=== PATIENT | female | born 1960 | race Caucasian/White ===

== ENCOUNTER 2018-11-01 04:20 | Emergency (ER) | payer MEDICARE, BC ==
[2018-11-01] MEDS ORDERED: Sodium Chloride 0.9% 10 ML Syringe FLUSH PRN (04:54)
[2018-11-01] MEDS ORDERED: Sodium Chloride 0.9% 1,000 ML IV SCH (05:00)
--- NOTE | 2018-11-01 05:04 | EDM.PDOC ---
ED HPI GENERAL MEDICAL PROBLEM - General Chief Complaint: Gastrointestinal Problem Stated Complaint: blood in stool Time Seen by Provider: 11/01/18 04:42 Source of Information: Reports: Patient History Limitations: Reports: No Limitations - History of Present Illness INITIAL COMMENTS - FREE TEXT/NARRATIVE: The patient presents with rectal bleeding. She says for about a week she was constipated and then she started having bowel movements yesterday morning. There was just streaks of blood and that progressed to blood with clots. She has pain to her lower abdomen. She has no nausea or vomiting. She spinal bifida and is in a wheel chair. She has a urosotmy tube in the right lower abdomen. She has no fever, chills, cough, congestion or runny nose. She has no chest pain or shortness of breath. Onset: Gradual Duration: Day(s): (yesterday) Location: Reports: Abdomen Quality: Reports: Sharp Severity: Mild Improves with: Reports: None Worsens with: Reports: None Associated Symptoms: Reports: No Other Symptoms - Related Data Allergies Allergy/AdvReac Type Severity Reaction Status Date / Time codeine Allergy Abdominal Verified 11/01/18 04:39 Cramps Home Meds: Home Meds Amoxicillin/Clavulanate K [Augmentin 875-125 MG] 1 tab PO BID #14 tablet [Rx] Past Medical History HEENT History: Reports: Impaired Vision Cardiovascular History: Reports: Hypertension Gastrointestinal History: Reports: GERD, Hemorrhoids - Past Surgical History HEENT Surgical History: Reports: None Cardiovascular Surgical History: Reports: None GI Surgical History: Reports: Cholecystectomy Social & Family History - Family History Family Medical History: Noncontributory - Tobacco Use Smoking Status *Q: Never Smoker - Caffeine Use Caffeine Use: Reports: Coffee - Recreational Drug Use Recreational Drug Use: No ED ROS GENERAL - Review of Systems Review Of Systems: See Below Constitutional: Reports: No Symptoms HEENT: Reports: No Symptoms Respiratory: Reports: No Symptoms Cardiovascular: Reports: No Symptoms Endocrine: Reports: No Symptoms GI/Abdominal: Reports: Abdominal Pain, Bloody Stool. Denies: Nausea, Vomiting : Reports: No Symptoms Musculoskeletal: Reports: No Symptoms ED EXAM, GI/ABD - Physical Exam Exam: See Below Exam Limited By: No Limitations General Appearance: Alert, No Apparent Distress Ears: Normal External Exam Nose: Normal Inspection Head: Atraumatic, Normocephalic Neck: Normal Inspection Respiratory/Chest: No Respiratory Distress, Lungs Clear, Normal Breath Sounds Cardiovascular: Regular Rate, Rhythm, No Edema, No Murmur GI/Abdominal Exam: Soft, Non-Tender, No Organomegaly, No Mass, Other (Urostomy in right lower abdomen) Rectal (Female) Exam: Hemorrhoids Course - Vital Signs Last Recorded V/S: Last Vital Signs Temp 96.7 F 11/01/18 04:40 Pulse 91 11/01/18 04:40 Resp 16 11/01/18 04:40 BP 154/91 H 11/01/18 04:40 Pulse Ox 97 11/01/18 04:40 - Orders/Labs/Meds Orders: Active Orders 24 hr Category Date Time Status Peripheral IV Care [RC] . DIRECTED Care 11/01/18 04:55 Active Sodium Chloride 0.9% [Normal Saline] 1,000 ml Med 11/01/18 05:00 Active IV ASDIRECTED Sodium Chloride 0.9% [Saline Flush] Med 11/01/18 04:54 Active 10 ml FLUSH ASDIRECTED PRN Peripheral IV Insertion Adult [OM.PC] Stat Oth 11/01/18 04:54 Ordered Medication Orders Sodium Chloride (Normal Saline) 1,000 mls @ 125 mls/hr IV ASDIRECTED GERARDO Last Admin: 11/01/18 05:05 Dose: 125 mls/hr Sodium Chloride (Saline Flush) 10 ml FLUSH ASDIRECTED PRN PRN Reason: Keep Vein Open Last Admin: 11/01/18 05:05 Dose: 10 ml Labs: Laboratory Tests 11/01/18 11/01/18 Range/Units 05:00 05:00 WBC 9.66 (3.98-10.04) K/mm3 RBC 4.64 (3.98-5.22) M/mm3 Hgb 13.3 (11.2-15.7) gm/L Hct 40.9 (34.1-44.9) % MCV 88.1 (79.4-94.8) fl MCH 28.7 (25.6-32.2) pg MCHC 32.5 (32.2-35.5) g/dl RDW Std Deviation 43.0 (36.4-46.3) fL Plt Count 184 (182-369) K/mm3 MPV 10.8 (9.4-12.3) fl Neut % (Auto) 79.0 H (34.0-71.1) % Lymph % (Auto) 13.6 L (19.3-51.7) % [place] % (Auto) 6.0 (4.7-12.5) % Eos % (Auto) 1.0 (0.7-5.8) Baso % (Auto) 0.3 (0.1-1.2) % Neut # (Auto) 7.63 H (1.56-6.13) K/mm3 Lymph # (Auto) 1.31 (1.18-3.74) K/mm3 [place] # (Auto) 0.58 H (0.24-0.36) K/mm3 Eos # (Auto) 0.10 (0.04-0.36) K/mm3 Baso # (Auto) 0.03 (0.01-0.08) K/mm3 Sodium 137 (136-145) mEq/L Potassium 4.0 (3.5-5.1) mEq/L Chloride 103 (98-107) mEq/L Carbon Dioxide 23 (21-32) mEq/L Anion Gap 15.0 (5-15) BUN 24 H (7-18) mg/dL Creatinine 1.6 H (0.55-1.02) mg/dL Est Cr Clr Drug Dosing 28.20 mL/min Estimated GFR (MDRD) 33 (>60) mL/min BUN/Creatinine Ratio 15.0 (14-18) Glucose 100 (74-106) mg/dL Calcium 8.6 (8.5-10.1) mg/dL Total Bilirubin 0.6 (0.2-1.0) mg/dL AST 17 (15-37) U/L ALT 16 (14-59) U/L Alkaline Phosphatase 155 H (46-116) U/L Total Protein 7.4 (6.4-8.2) g/dl Albumin 3.1 L (3.4-5.0) g/dl Globulin 4.3 gm/dL Albumin/Globulin Ratio 0.7 L (1-2) Lipase 186 (73-393) U/L Meds: Medications Generic Name Dose Route Start Last Admin Trade Name Freq PRN Reason Stop Dose Admin Sodium Chloride 1,000 mls @ 125 mls/hr 11/01/18 05:00 11/01/18 05:05 Normal Saline IV 125 mls/hr ASDIRECTED GERARDO Administration Sodium Chloride 10 ml 11/01/18 04:54 11/01/18 05:05 Saline Flush FLUSH 10 ml ASDIRECTED PRN Administration Keep Vein Open Discontinued Medications Generic Name Dose Route Start Last Admin Trade Name Freq PRN Reason Stop Dose Admin Diatrizoate Meglum/Diatrizoate Sod 90 ml 11/01/18 06:06 11/01/18 07:06 Gastrografin 37% PO 11/01/18 06:07 90 ml ONETIME ONE Administration Iopamidol 100 ml 11/01/18 06:06 11/01/18 07:06 Isovue-370 (76%) IV 11/01/18 06:07 100 ml ONETIME ONE Administration Ondansetron HCl 4 mg 11/01/18 06:21 11/01/18 06:49 Zofran IVPUSH 11/01/18 06:22 4 mg ONETIME ONE Administration Ondansetron HCl Confirm 11/01/18 06:21 11/01/18 06:49 Zofran Administered 11/01/18 06:22 Not Given Dose 4 mg .ROUTE .[facility] - Re-Assessments/Exams Free Text/Narrative Re-Assessment/Exam: 11/01/18 05:03 I ordered an IV NS at 125mL/hr, labs and a CT of her abdomen and pelvis. 11/01/18 06:38 Her CBC was normal. Her creatinine was elevated at 1.6. Her lipase was normal. I am waiting on the CT of her abdomen and pelvis. 11/01/18 07:[address] shows ileal loop with ostomy. Left ureter is dilated down to the ileal loop suggesting the possibility of either reflux or stenosis at the site of insertion. Right ureter shows no dilatation with contrast excretion into the right ureter and ileal loop on delayed images. Bowel wall thickening within the rectum sigmoid colon and descending colon compatible with nonspecific colitis. The patient feels better. She has colitis and a bleeding hemarrhoid. I will get her on some augmentin. Departure - Departure Time of Disposition: 07:20 Disposition: Home, Self-Care 01 Condition: Good Clinical Impression: Bleeding hemorrhoid, Colitis - Discharge Information *PRESCRIPTION DRUG MONITORING PROGRAM REVIEWED*: Not Applicable *COPY OF PRESCRIPTION DRUG MONITORING REPORT IN PATIENT WHITNEY: Not Applicable Prescriptions: Amoxicillin/Clavulanate K [Augmentin 875-125 MG] 1 tab PO BID #14 tablet Referrals: Aldair Restrepo MD [Primary Care Provider] - Forms: ED Department Discharge Additional Instructions: Take the augmentin 2 times per day for 7 days. Take colace or another stool softener to keep your stools soft. After a bowel movement clean the rectal area good. Please return if you are worse. - My Orders Last 24 Hours: My Active Orders 11/01/18 04:54 Sodium Chloride 0.9% [Saline Flush] 10 ml FLUSH ASDIRECTED PRN Peripheral IV Insertion Adult [OM.PC] Stat 11/01/18 04:55 Peripheral IV Care [RC] . DIRECTED 11/01/18 05:00 Sodium Chloride 0.9% [Normal Saline] 1,000 ml IV ASDIRECTED - Assessment/Plan Last 24 Hours: My Active Orders 11/01/18 04:54 Sodium Chloride 0.9% [Saline Flush] 10 ml FLUSH ASDIRECTED PRN Peripheral IV Insertion Adult [OM.PC] Stat 11/01/18 04:55 Peripheral IV Care [RC] . DIRECTED 11/01/18 05:00 Sodium Chloride 0.9% [Normal Saline] 1,000 ml IV ASDIRECTED
[2018-11-01] MEDS ORDERED: Diatrizoate Meglumine/Diatrizoate Sodium 37% 120 ML Bottle PO ONE (06:06)
[2018-11-01] MEDS ORDERED: Iopamidol 755 Mg/ML 200 ML Bottle IV ONE (06:06)
[2018-11-01] MEDS ORDERED: Ondansetron 4 MG/2 ML SDV IVPUSH ONE (06:21)
[2018-11-01] MEDS ORDERED: Ondansetron 4 MG/2 ML SDV ONE (06:21)
--- NOTE | 2018-11-01 07:10 | CT ---
CT abdomen and pelvis Technique: Multiple axial sections were obtained from slightly below the dome of the diaphragm inferiorly through the pubic symphysis. Intravenous and oral contrast was given. Findings: Bowel wall thickening is seen within the rectum as well as within the sigmoid colon and descending colon. Ileal loop with ostomy is noted. Left ureter is dilated to the ileal loop. Left kidney is hydronephrotic with cortical thinning. There are cortical cysts seen within both kidneys. Small portion of the visualized lung bases are clear. Surgical clips are seen from prior cholecystectomy. Small to moderate sized hiatal hernia is noted. Liver shows no focal parenchymal abnormality. Spleen appears within normal limits. Pancreas is within normal limits. Aorta shows atherosclerotic change which continues into the iliac vessels without aneurysm. No retroperitoneal adenopathy or mesenteric abnormalities are seen. No pelvic mass or adenopathy is seen. No free fluid is seen. Delayed images through the abdomen show contrast excretion into the right ureter and into the ileostomy. No contrast is seen within the left ureter with small amount of contrast pooling within a dilated collecting system. Bone window settings were reviewed which show slight degenerative change scattered within the spine. Impression: 1. Ileal loop with ostomy. Left ureter is dilated down to the ileal loop suggesting the possibility of either reflux or stenosis at the site of insertion. Right ureter shows no dilatation with contrast excretion into the right ureter and ileal loop on delayed images. 2. Bowel wall thickening within the rectum, sigmoid colon and descending colon compatible with nonspecific colitis. 3. Other incidental findings as noted above. Diagnostic code #3
== END 2018-11-01 07:36 | disposition home or self-care (01) ==
LOC: JD.ED 04:20
DX: K52.9 Noninfective gastroenteritis and colitis, unspecified (principal); K64.9 Unspecified hemorrhoids; I10 Essential (primary) hypertension; Z88.5 Allergy status to narcotic agent
CPT/HCPCS: 36415; 74177; 80053; 83690; 85025; 96361; 96374; 99284; J2405; J7040; Q9963; Q9967

== ENCOUNTER 2021-04-16 19:24 | Emergency (ER) | payer MEDICARE, OTHER ==
[2021-04-16] MEDS ORDERED: Ondansetron 4 MG/2 ML SDV IVPUSH ONE (20:14)
[2021-04-16] MEDS ORDERED: HYDROmorphone 1 MG/ML Syringe IVPUSH ONE (20:14)
[2021-04-16] MEDS ORDERED: Sodium Chloride 0.9% 1,000 ML IV SCH (20:15)
[2021-04-16] MEDS ORDERED: Loperamide 2 MG Cap PO STA (20:19)
--- NOTE | 2021-04-16 20:20 | EDM.PDOC ---
ED HPI GENERAL MEDICAL PROBLEM - General Chief Complaint: Possible Sepsis Stated Complaint: [facility] Time Seen by Provider: 04/16/21 19:34 Source of Information: Reports: Patient History Limitations: Reports: Uncooperative - History of Present Illness INITIAL COMMENTS - FREE TEXT/NARRATIVE: Ms. Summers is a 60 year old woman who is now brought to the ED by EMS with a r eport of feeling sick for the past 3 weeks, after her sister, with whom she lives, was diagnosed with COVID-19. The patient was reluctant to answer my questions about her presenting symptoms or past medical history, at one point telling me to go look in the medical record, which, unfortunately, I cannot do, as the patient has only been to this ED once before, and the medical record does not even mention that she has spina bifida. I suspect that the patient has spent a lifetime in healthcare facilities and is tired of answering the same questions over and over. I believe that I was able to convey to her, however, that we are simply trying to help her. The patient has a history of spina bifida, and is ordinarily wheelchair-bound, although I believe she can use a pair of arm crutches, as well. She endorses that she has had 3 weeks of a nonproductive cough with dyspnea, and both constipation and diarrhea. She reports having nausea and vomiting this morning. She expressly denies having a recent fever, chills, sore throat, ear pain, nasal or sinus congestion, chest pain or discomfort, palpitations, abdominal pain, urinary symptoms, body aches, recent weight gain or weight loss, recent bloody bowel movements or black bowel movements, recent joint aches, headaches, or rashes. She states that she has not taken any [id number] or home remedies over the past 3 weeks, and she has not sought any medical evaluation until now. The patient states that she has pain in her sacral area related to her diarrhea. She is concerned that she has an ulcer or an infection in that area. She states that she has been cleaning the area with ordinary soap and water, but has not applied any medications or salves. Here in the ED, the patient was initially found to be tachycardic at 126 bpm, with tachypnea of 30 rpm. She is otherwise hemodynamically stable, afebrile, saturating 90% on room air. She appears to be uncomfortable, complaining of sacral area pain, frequently shifting her position, but declined an offer to have me put the head of the gurney down. She does not appear to be in acute distress. The patient's PCP is Dr. Aldair Restrepo. Her Orthopedic Surgeon is Dr. Kurtis Martinez. She has not received a COVID vaccination. - Related Data Allergies Allergy/AdvReac Type Severity Reaction Status Date / Time codeine Allergy Abdominal Verified 04/16/21 19:35 Cramps Past Medical History HEENT History: Reports: Impaired Vision (wears glasses) Cardiovascular History: Reports: High Cholesterol (untreated), Hypertension Gastrointestinal History: Reports: GERD, Hemorrhoids Genitourinary History: Reports: Neurogenic Bladder (s/p urostomy) Neurological History: Reports: Other (See Below) (Spina bifida) - Past Surgical History HEENT Surgical History: Reports: Oral Surgery (dental extractions) GI Surgical History: Reports: Cholecystectomy Female Surgical History: Reports: Other (See Below) (Urostomy) Social & Family History - Tobacco Use Tobacco Use Status *Q: Never Tobacco User - Caffeine Use Caffeine Use: Reports: Coffee - Alcohol Use Alcohol Use History: No - Recreational Drug Use Recreational Drug Use: No - Living Situation & Occupation Living situation: Reports: Single, with Family (Sister) Occupation: Disabled ED ROS GENERAL - Review of Systems Review Of Systems: Comprehensive ROS is negative, except as noted in HPI. ED EXAM, GENERAL - Physical Exam Exam: See Below Exam Limited By: No Limitations General Appearance: Alert, WD/WN, Mild Distress (appears uncomfortable, complains of sacral area pain) Eye Exam: Bilateral Eye: EOMI, Normal Inspection Ears: Normal External Exam, Hearing Loss Nose: Normal Inspection Throat/Mouth: Normal Inspection, Normal Lips, Normal Voice, No Airway Compromise Head: Atraumatic, Normocephalic Neck: Normal Inspection, Full Range of Motion Respiratory/Chest: No Respiratory Distress, Lungs Clear, Normal Breath Sounds, No Accessory Muscle Use Cardiovascular: Normal Peripheral Pulses, Regular Rate, Rhythm (at time of exam), No Edema, No Gallop, No JVD, No Murmur, No Rub Peripheral Pulses: 3+: Radial (L), Radial (R) GI/Abdominal: Normal Bowel Sounds, Soft, No Organomegaly, No Distention, No Abnormal Bruit, No Mass, Tender (Generalized tenderness. Urostomy RLQ C/D/I), Other (Well-healed surgical wounds) Rectal (Female) Exam: Other (Redundant folds of soft tissue likely related to spina bifida. Skin is erythematous and somewhat excoriated, but no obvious decubitus ulcer of infection.) Back Exam: Normal Inspection, Full Range of Motion, NT Extremities: No Pedal Edema, Normal Capillary Refill Neurological: Alert, Oriented, Normal Cognition, Other (Impaired use BLEs) Psychiatric: Depressed Mood Skin Exam: Warm, Dry, Intact, Normal Color, No Rash Course - Vital Signs Last Recorded V/S: Last Vital Signs Temp 36.9 C 04/17/21 03:36 Pulse 88 04/17/21 04:22 Resp 16 04/17/21 04:22 BP 76/44 L 04/17/21 04:22 Pulse Ox 97 04/17/21 04:22 - Orders/Labs/Meds Orders: Active Orders 24 hr Category Date Time Status Abdomen Pelvis w Cont [CT] Stat Exams 04/16/21 20:11 Taken Chest 1V Frontal [CR] Stat Exams 04/16/21 20:10 Taken BLOOD CULTURE [MREF] Stat Lab 04/16/21 20:45 Received BLOOD CULTURE [MREF] Stat Lab 04/16/21 21:20 Received CULTURE URINE [MREF] Stat Lab 04/16/21 23:00 Received Sodium Chloride 0.9% [Normal Saline] 1,000 ml Med 04/16/21 20:15 Active IV ASDIRECTED Sodium Chloride 0.9% [Normal Saline] 1,000 ml Med 04/17/21 04:50 Active IV ONETIME Blood Culture x2 Reflex Set [OM.PC] Stat Oth 04/16/21 20:13 Ordered Medication Orders Sodium Chloride (Normal Saline) 1,000 mls @ 150 mls/hr IV ASDIRECTED [facility] Last Admin: 04/16/21 20:56 Dose: 150 mls/hr Documented by: AYAD Sodium Chloride (Normal Saline) 1,000 mls @ 999 mls/hr IV ONETIME ONE Stop: 04/17/21 05:50 Last Admin: 04/17/21 05:03 Dose: 999 mls/hr Documented by: SOPHIE Labs: Laboratory Tests 04/16/21 04/16/21 04/16/21 Range/Units 19:40 19:40 19:40 WBC 22.38 H (3.98-10.04) K/mm3 RBC 4.63 (3.98-5.22) M/mm3 Hgb 12.8 (11.2-15.7) gm/dl Hct 39.0 (34.1-44.9) % MCV 84.2 D (79.4-94.8) fl MCH 27.6 (25.6-32.2) pg MCHC 32.8 (32.2-35.5) g/dl RDW Std Deviation 43.3 (36.4-46.3) fL Plt Count 359 D (182-369) K/mm3 MPV 11.1 (9.4-12.3) fl Neutrophils % (Manual) 87 H (40-60) % Band Neutrophils % 0 (0-10) % Lymphocytes % (Manual) 8 L (20-40) % Atypical Lymphs % 0 % Monocytes % (Manual) 4 (2-10) % Eosinophils % (Manual) 0 L (0.7-5.8) % Basophils % (Manual) 1 (0.1-1.2) Platelet Estimate Adequate RBC Morph Comment Normal Puncture Site ABG pH (7.35-7.45) ABG pCO2 (35.0-45.0) mmHg ABG pO2 (80.0-100.0) mmHg ABG HCO3 (22.0-26.0) meq/L ABG O2 Saturation (96.0-97.0) % ABG Base Excess (-2-2.0) Lamine Test O2 Delivery Device FiO2 (21.00-100.00) % Sodium 126 L D (136-145) mEq/L Potassium 5.1 (3.5-5.1) mEq/L Chloride 94 L (98-107) mEq/L Carbon Dioxide 17 L (21-32) mEq/L Anion Gap 20.1 H (5-15) BUN 61 H D (7-18) mg/dL Creatinine 3.8 H D (0.55-1.02) mg/dL Est Cr Clr Drug Dosing TNP Estimated GFR (MDRD) 12 (>60) mL/min BUN/Creatinine Ratio 16.1 (14-18) Glucose 90 (70-99) mg/dL Lactic Acid 1.6 (0.4-2.0) mmol/L Calcium 8.6 (8.5-10.1) mg/dL Magnesium (1.8-2.4) mg/dL Total Bilirubin 0.7 (0.2-1.0) mg/dL AST 24 (15-37) U/L ALT 21 (14-59) U/L Alkaline Phosphatase 136 H (46-116) U/L C-Reactive Protein (<1.0) mg/dL Total Protein 7.5 (6.4-8.2) g/dl Albumin 2.0 L (3.4-5.0) g/dl Globulin 5.5 gm/dL Albumin/Globulin Ratio 0.4 L (1-2) Urine Color (Yellow) Urine Appearance (Clear) Urine pH (5.0-8.0) Ur Specific Red House (1.005-1.030) Urine Protein (Negative) Urine Glucose (UA) (Negative) Urine Ketones (Negative) Urine Occult Blood (Negative) Urine Nitrite (Negative) Urine Bilirubin (Negative) Urine Urobilinogen (0.2-1.0) Ur Leukocyte Esterase (Negative) Urine RBC (0-5) /hpf Urine WBC (0-5) /hpf Urine WBC Clumps (NOT SEEN) /hpf Ur Squamous Epith Cells (0-5) /hpf Urine Bacteria (FEW) /hpf Urine Mucus (FEW) /hpf SARS-CoV-2 RNA (OPAL) (NEGATIVE) 04/16/21 04/16/21 04/16/21 Range/Units 19:40 19:51 23:00 WBC (3.98-10.04) K/mm3 RBC (3.98-5.22) M/mm3 Hgb (11.2-15.7) gm/dl Hct (34.1-44.9) % MCV (79.4-94.8) fl MCH (25.6-32.2) pg MCHC (32.2-35.5) g/dl RDW Std Deviation (36.4-46.3) fL Plt Count (182-369) K/mm3 MPV (9.4-12.3) fl Neutrophils % (Manual) (40-60) % Band Neutrophils % (0-10) % Lymphocytes % (Manual) (20-40) % Atypical Lymphs % % Monocytes % (Manual) (2-10) % Eosinophils % (Manual) (0.7-5.8) % Basophils % (Manual) (0.1-1.2) Platelet Estimate RBC Morph Comment Puncture Site ABG pH (7.35-7.45) ABG pCO2 (35.0-45.0) mmHg ABG pO2 (80.0-100.0) mmHg ABG HCO3 (22.0-26.0) meq/L ABG O2 Saturation (96.0-97.0) % ABG Base Excess (-2-2.0) Lamine Test O2 Delivery Device FiO2 (21.00-100.00) % Sodium (136-145) mEq/L Potassium (3.5-5.1) mEq/L Chloride (98-107) mEq/L Carbon Dioxide (21-32) mEq/L Anion Gap (5-15) BUN (7-18) mg/dL Creatinine (0.55-1.02) mg/dL Est Cr Clr Drug Dosing Estimated GFR (MDRD) (>60) mL/min BUN/Creatinine Ratio (14-18) Glucose (70-99) mg/dL Lactic Acid (0.4-2.0) mmol/L Calcium (8.5-10.1) mg/dL Magnesium 2.0 (1.8-2.4) mg/dL Total Bilirubin (0.2-1.0) mg/dL AST (15-37) U/L ALT (14-59) U/L Alkaline Phosphatase (46-116) U/L C-Reactive Protein 39.9 H* (<1.0) mg/dL Total Protein (6.4-8.2) g/dl Albumin (3.4-5.0) g/dl Globulin gm/dL Albumin/Globulin Ratio (1-2) Urine Color Dark yellow (Yellow) Urine Appearance Turbid H (Clear) Urine pH 6.0 (5.0-8.0) Ur Specific Red [place] 1.020 (1.005-1.030) Urine Protein 2+ H (Negative) Urine Glucose (UA) Negative (Negative) Urine Ketones Trace H (Negative) Urine Occult Blood 2+ H (Negative) Urine Nitrite Negative (Negative) Urine Bilirubin 1+ H (Negative) Urine Urobilinogen 1.0 (0.2-1.0) Ur Leukocyte Esterase 3+ H (Negative) Urine RBC 5-10 H (0-5) /hpf Urine WBC Too numerous to cnt H (0-5) /hpf Urine WBC Clumps Few (NOT SEEN) /hpf Ur Squamous Epith Cells 0-5 (0-5) /hpf Urine Bacteria Many H (FEW) /hpf Urine Mucus Not seen (FEW) /hpf SARS-CoV-2 RNA (OPAL) Positive H (NEGATIVE) 04/16/21 Range/Units 23:15 WBC (3.98-10.04) K/mm3 RBC (3.98-5.22) M/mm3 Hgb (11.2-15.7) gm/dl Hct (34.1-44.9) % MCV (79.4-94.8) fl MCH (25.6-32.2) pg MCHC (32.2-35.5) g/dl RDW Std Deviation (36.4-46.3) fL Plt Count (182-369) K/mm3 MPV (9.4-12.3) fl Neutrophils % (Manual) (40-60) % Band Neutrophils % (0-10) % Lymphocytes % (Manual) (20-40) % Atypical Lymphs % % Monocytes % (Manual) (2-10) % Eosinophils % (Manual) (0.7-5.8) % Basophils % (Manual) (0.1-1.2) Platelet Estimate RBC Morph Comment Puncture Site Lt radial ABG pH 7.26 L (7.35-7.45) ABG pCO2 30.7 L (35.0-45.0) mmHg ABG pO2 72.0 L (80.0-100.0) mmHg ABG HCO3 13.4 L (22.0-26.0) meq/L ABG O2 Saturation 91.7 L (96.0-97.0) % ABG Base Excess -12.2 L (-2-2.0) Lamine Test Positive O2 Delivery Device Room air FiO2 21.00 (21.00-100.00) % Sodium (136-145) mEq/L Potassium (3.5-5.1) mEq/L Chloride (98-107) mEq/L Carbon Dioxide (21-32) mEq/L Anion Gap (5-15) BUN (7-18) mg/dL Creatinine (0.55-1.02) mg/dL Est Cr Clr Drug Dosing Estimated GFR (MDRD) (>60) mL/min BUN/Creatinine Ratio (14-18) Glucose (70-99) mg/dL Lactic Acid (0.4-2.0) mmol/L Calcium (8.5-10.1) mg/dL Magnesium (1.8-2.4) mg/dL Total Bilirubin (0.2-1.0) mg/dL AST (15-37) U/L ALT (14-59) U/L Alkaline Phosphatase (46-116) U/L C-Reactive Protein (<1.0) mg/dL Total Protein (6.4-8.2) g/dl Albumin (3.4-5.0) g/dl Globulin gm/dL Albumin/Globulin Ratio (1-2) Urine Color (Yellow) Urine Appearance (Clear) Urine pH (5.0-8.0) Ur Specific Red [place] (1.005-1.030) Urine Protein (Negative) Urine Glucose (UA) (Negative) Urine Ketones (Negative) Urine Occult Blood (Negative) Urine Nitrite (Negative) Urine Bilirubin (Negative) Urine Urobilinogen (0.2-1.0) Ur Leukocyte Esterase (Negative) Urine RBC (0-5) /hpf Urine WBC (0-5) /hpf Urine WBC Clumps (NOT SEEN) /hpf Ur Squamous Epith Cells (0-5) /hpf Urine Bacteria (FEW) /hpf Urine Mucus (FEW) /hpf SARS-CoV-2 RNA (OPAL) (NEGATIVE) Meds: Medications Generic Name Dose Route Start Last Admin Trade Name Freq PRN Reason Stop Dose Admin Sodium Chloride 1,000 mls @ 150 mls/hr 04/16/21 20:15 04/16/21 20:56 Normal Saline IV 150 mls/hr ASDIRECTED GERARDO Administration Sodium Chloride 1,000 mls @ 999 mls/hr 04/17/21 04:50 04/17/21 05:03 Normal Saline IV 04/17/21 05:50 999 mls/hr ONETIME ONE Administration Discontinued Medications Generic Name Dose Route Start Last Admin Trade Name Freq PRN Reason Stop Dose Admin Hydromorphone HCl 1 mg 04/16/21 20:14 04/16/21 20:57 Hydromorphone 1 Mg/Ml Syringe IVPUSH 04/16/21 20:15 1 mg ONETIME ONE Administration Sodium Chloride 1,000 mls @ 999 mls/hr 04/17/21 00:48 04/17/21 00:53 Normal Saline IV 04/17/21 01:48 999 mls/hr ONETIME ONE Administration Vancomycin HCl 1 gm/ Sodium 250 mls @ 250 mls/hr 04/17/21 00:55 04/17/21 01:25 Chloride IV 04/17/21 01:54 250 mls/hr ONETIME STA Administration Ceftriaxone Sodium 1 gm/ 100 mls @ 200 mls/hr 04/17/21 00:56 04/17/21 01:22 Sodium Chloride IV 04/17/21 01:25 200 mls/hr ONETIME STA Administration Iopamidol 100 ml 04/16/21 22:07 04/16/21 22:31 Iopamidol 612 Mg/Ml 100 Ml Bottle IVPUSH 04/16/21 22:08 100 ml ONETIME ONE Administration Iopamidol 25 ml 04/16/21 22:07 04/16/21 22:31 Iopamidol 612 Mg/Ml 50 Ml Sdv IVPUSH 04/16/21 22:08 50 ml ONETIME ONE Administration Loperamide HCl 4 mg 04/16/21 20:19 04/16/21 20:56 Loperamide 2 Mg Cap PO 04/16/21 20:20 4 mg ONETIME STA Administration Ondansetron HCl 4 mg 04/16/21 20:14 04/16/21 20:56 Ondansetron 4 Mg/2 Ml Sdv IVPUSH 04/16/21 20:15 4 mg ONETIME ONE Administration Sodium Chloride 10 ml 04/16/21 22:07 04/16/21 23:31 Sodium Chloride 0.9% 10 Ml Sdv FLUSH 04/16/21 22:08 10 ml ONETIME ONE Administration - Re-Assessments/Exams Free Text/Narrative Re-Assessment/Exam: 04/16/21 20:15 If it is true that the patient's sister tested positive for the SARS-CoV-2 virus 3 weeks ago, and the patient lives with her sister, then it is impossible that the patient did not also acquire the SARS-CoV-2 virus. One would expect the patient to have cleared the virus by this point, however; while the patient has spina bifida, she is not immunocompromised or immunosuppressed. The patient's biggest complaint is of pain to her sacral area, and on examination, the area appears to have some soft tissue folds likely related to her spina bifida, that is erythematous and somewhat excoriated, although I do not see a decubitus ulcer or obvious sign of an infection. The area is covered with diarrheal stool - we will see what it looks like after she is cleaned up. A CBC, CMP, lactic acid level, and a swab for the SARS-CoV-2 virus were ordered at triage. I have added some other blood tests, 2 sets of blood cultures, a urinalysis, a urine culture, a portable chest x-ray, and a CT of the patient's abdomen and pelvis with oral and IV contrast. In the meantime, the patient will be treated with some IV Dilaudid, IV Zofran, oral loperamide, and IV fluid. 04/16/21 21:09 The patient's CBC is remarkable for leukocytosis of 22.38, but with 0% bandemia, and the remainder of her CBC being unremarkable. Her CMP is remarkable for hyponatremia of 126, a bicarbonate depressed at 17 wit h an anion gap elevated at 20.1, and a BUN/Cr elevated at 61/3.8. Her alkaline phosphatase is slightly elevated at 136, with remainder of her CMP being unremarkable. Her magnesium level is within normal limits at 2.0. Her lactic acid level is within normal limits at 1.6. Her CRP is significantly elevated at 39.9. Her swab for the SARS-CoV-2 virus is positive. Results of her urinalysis, portable chest x-ray, and a CT of the abdomen and pelvis with oral and IV contrast are still pending. Review of prior labs finds that the patient's BUN/Cr were 14/1.6 on 11/01/2018. Based on the above, I will order an ABG. 04/16/21 21:21 Although we do not have a recorded BMI, the patient's body habitus would indicate that she is a candidate for an infusion of the monoclonal antibody Regen-Cov. We discussed that at length, with the patient's sister seated at the bedside, including that it is an emergency use authorization medication, int ended to decrease the likelihood of patients diagnosed with COVID-19 from developing severe symptoms or , and that it does not treat her current symptoms. I explained that Regen-Cov is still under investigation, that it is not fully FDA approved, and that the potential benefits and risks of the medication are not fully known. The patient was notified that if she receives Regen-Cov, that it may decrease her immune response to a COVID vaccination, should she decide to get it after she recovers from her current illness. I explained that there is a possibility that she could have an allergic reaction either during or after the infusion, as well as brief pain, bleeding, bruising of the skin, soreness, swelling, and possible infection at the infusion site. Other side effects could occur. I discussed that there are other potential treatment options that are currently not FDA approved to treat COVID-19. The patient was notified that the infusion takes about half an hour, after which she would be expected to remain in the ED for another hour to observe for possible side effects. She was offered the "Patient and caregiver [facility] Regen-Cov fact sheet" to read and review. All questions were answered. The patient expressed understanding, but stated that she would not like to proceed with the infusion. She had indicated that when I had first interviewed her, as well. 04/16/21 22:51 Portable chest radiograph reviewed. There is some malrotation to the right. Poor inspiratory effort. The cardiac silhouette is within normal limits. No pulmonary vascular congestion. No pleural effusions seen on this AP view. There are bilateral hazy infiltrates, consistent with COVID-19 pneumonia. No pneumothorax. 2 metallic opacities under the right hemidiaphragm of unclear significance - they could be outside the body. Formal read per the Radiologist pending. 04/16/21 23:34 CT of the abdomen and pelvis with oral and IV contrast is read by vRmaikel as: 1. There is probably edema of the anorectal junction, consistent with proctitis . 2. Shaggy bilateral ill-defined increased densities at both lung bases consistent with nonspecific pneumonia. 3. Urothelial soft tissue thickening left renal pelvis and the left ureter. Most likely consistent with nonspecific inflammation. 4. Absence of the coccyx that is replaced with soft tissue gas and irregular soft tissue density. This is suspected to be osteolysis and could be from pressure changes or osteomyelitis. 04/17/21 00:51 The patient's urinalysis (from her urostomy bag) is remarkable for turbid appearance, 2+ occult blood with 5-10 RBCs, 3+ leukocyte esterase with TNTC WBCs, nitrate negative with many bacteria, and 0-5 squamous epithelial cells. Her ABG demonstrates a primary metabolic acidosis with secondary respiratory acidosis and additional metabolic alkalosis. For patients with a urostomy, pyuria is common and should not be used as a diagnostic indicator of a UTI. The diagnosis is clinical, and confirmed by urine culture. Bacteriuria is not diagnostic of a UTI, but the absence of bacteriuria can rule out a UTI. 04/17/21 00:56 Notified that the patient's blood pressure has been dropping. Current BP 73/46 with a HR of 87. Her SpO2 is 93% on 2 L of oxygen per NC. It is unclear if the patient's hypotension is related to her COVID-19 or a bacterial infection. As above, she has leukocytosis, but no bandemia. She has not had a fever. I have ordered a second liter of IV fluid, and will start her on IV vancomycin and Rocephin. 04/17/21 04:50 The patient is persistently hypotensive, despite IV fluid. Her current BP is 76/44, with a HR of 95. I have ordered a 3rd L of NS. The patient will need to be admitted to the ICU. We are currently on diversion, therefore we will endeavor to find an ICU bed at an outside facility. 04/17/21 05:20 Case discussed with Swetha at [facility] at 04:56. Case then discussed with Dr. Jack, Contact [employer] at [facility], at 04:56. Dr. Jack expressed concern about the soft tissue infection in the patient's sacral area, and wanted to make sure that the Surgeon would be able to handle that. The portable chest x-ray and CT images were pushed to [facility] at 05:04. Leo Donovan, Surgeon, was added to the call at 05:07. He was willing to consult on the case. Dr. Jack accepted the patient for transfer to their facility. He requested that I place a central line and start the patient on a pressor. He also wanted me to clarify the patient's CODE STATUS. We will update Swetha on those issues. I then discussed the situation with the patient. She stated that she does not want a central line or pressors, even through a peripheral line, stating that she feels fine. With respect to her CODE STATUS, she stated that she wanted to be full code. We will transfer the patient by ground ambulance. Departure - Departure Time of Disposition: 05:26 Disposition: DC/Tfer to [facility] 02 Condition: Fair Clinical Impression: COVID-19, Hypotension, Hyponatremia, Leukocytosis, Suspected soft tissue infection, Acute on chronic renal failure, High anion gap metabolic acidosis - Discharge Information *PRESCRIPTION DRUG MONITORING PROGRAM REVIEWED*: Not Applicable *COPY OF PRESCRIPTION DRUG MONITORING REPORT IN PATIENT WHITNEY: Not Applicable Referrals: Aldair Restrepo MD [Primary Care Provider] - Kurtis Martinez DO [Physician] - Forms: ED Department Discharge Sepsis Event Note (ED) - Evaluation Sepsis Screening Result: Possible Sepsis Risk - Focused Exam Vital Signs: Vital Signs Temp Pulse Resp BP Pulse Ox 04/17/21 04:22 88 16 76/44 L 97 04/17/21 03:36 36.9 C 85 16 90/53 L 97 04/17/21 02:14 96 80/56 L 04/17/21 01:28 93 18 97/56 L 97 04/17/21 00:58 88 18 75/46 L 95 04/16/21 23:51 36.9 C 122 H 16 81/55 L 100 04/16/21 19:29 36.6 C 126 H 30 H 113/68 90 L - My Orders Last 24 Hours: My Active Orders 04/16/21 20:10 Chest 1V Frontal [CR] Stat 04/16/21 20:11 Abdomen Pelvis w Cont [CT] Stat 04/16/21 20:13 Blood Culture x2 Reflex Set [OM.PC] Stat 04/16/21 20:15 Sodium Chloride 0.9% [Normal Saline] 1,000 ml IV ASDIRECTED 04/16/21 20:45 BLOOD CULTURE [MREF] Stat 04/16/21 21:20 BLOOD CULTURE [MREF] Stat 04/16/21 23:00 CULTURE URINE [MREF] Stat 04/17/21 04:50 Sodium Chloride 0.9% [Normal Saline] 1,000 ml IV ONETIME - Assessment/Plan Last 24 Hours: My Active Orders 04/16/21 20:10 Chest 1V Frontal [CR] Stat 04/16/21 20:11 Abdomen Pelvis w Cont [CT] Stat 04/16/21 20:13 Blood Culture x2 Reflex Set [OM.PC] Stat 04/16/21 20:15 Sodium Chloride 0.9% [Normal Saline] 1,000 ml IV ASDIRECTED 04/16/21 20:45 BLOOD CULTURE [MREF] Stat 04/16/21 21:20 BLOOD CULTURE [MREF] Stat 04/16/21 23:00 CULTURE URINE [MREF] Stat 04/17/21 04:50 Sodium Chloride 0.9% [Normal Saline] 1,000 ml IV ONETIME
[2021-04-16] MEDS ORDERED: Iopamidol 612 MG/ML 50 ML SDV IVPUSH ONE (22:07)
[2021-04-16] MEDS ORDERED: Iopamidol 612 MG/ML 100 ML Bottle IVPUSH ONE (22:07)
[2021-04-16] MEDS ORDERED: Sodium Chloride 0.9% 10 ML SDV FLUSH ONE (22:07)
[2021-04-17] MEDS ORDERED: Sodium Chloride 0.9% 1,000 ML IV ONE ×2 (00:48→04:50)
[2021-04-17] MEDS ORDERED: cefTRIAXone 1 GM in Sodium Chloride 0.9% 100 ML IV STA (00:56)
--- NOTE | 2021-04-17 07:29 | CT ---
CT abdomen and pelvis Technique: Multiple axial sections were obtained from above the dome of the diaphragm inferiorly through the pubic symphysis. Intravenous contrast was utilized. Delayed images were also obtained to the bladder. Reconstructed coronal and sagittal images were obtained. Comparison: Prior CT abdomen and pelvis study of 11/01/18. Findings: Patchy areas of increased density are noted within both sides of the chest. Findings are suspicious for diffuse pneumonia, please rule out COVID disease. Coronary artery calcification is seen within the heart. Small to moderate size hiatal hernia is noted. Liver contains no focal abnormality. Surgical clips are noted from prior cholecystectomy. Spleen size is normal. Adrenal glands show no nodule. Pancreas shows mild fatty change without focal abnormality. Scattered cortical cysts are seen within both kidneys. Left ureter is dilated which is stable from prior CT study which terminates within an ileal loop that shows no dilatation. Slight thickening of the mucosa within the upper left kidney and ureter are seen which remain stable from prior CT study and appears to be chronic. Right ureter shows no dilatation and terminates within the ileal loop. Abdominal aorta shows atherosclerotic change with no aneurysm. Atherosclerotic change continues into the iliac vessels. No retroperitoneal adenopathy is seen. No mesenteric abnormalities are seen. No pelvic mass or adenopathy is appreciated. Uterus shows evidence of fibroid change with largest fibroid measuring approximately 2.9 cm. Sacrum does not appear to be present. Finding is stable from prior exam. Soft tissue density is seen inferiorly off the sacrum. Soft tissue density is also noted posterior to the sacrum. These findings are stable. Soft tissue air is noted within the subcutaneous fat in the posterior back and also extends into the areas of soft tissue thickening. Air is presumably from the cutaneous structures. Minimal thickening within the rectum is seen which has improved from prior CT exam and is felt to be incidental. Bone window settings were reviewed which show scattered degenerative change most prominent within the thoracic spine. Impression: 1. Patchy areas of increased density within both lung bases compatible with bilateral pneumonia, please rule out COVID disease. 2. Ileal loop is seen. Renal cysts are noted. Left ureter is dilated which appears stable from prior CT exam. 3. Soft tissue thickening posterior to the sacrum as well as extending off the distal coccyx. This is stable from prior CT exam although current study shows air within these structures as well as air within the adjacent subcutaneous fat. Air is most likely due to cutaneous extension. Absence of the coccyx is seen which appears stable from prior CT exam. 4. No other acute abnormality is seen. Diagnostic code #3 I mostly agree with preliminary report from [facility], finalized on 04/17/21, 12:26 AM CDT, code 2
--- NOTE | 2021-04-17 07:32 | CR ---
Chest: Portable view of the chest was obtained. Comparison: No prior chest imaging is available. Heart size and mediastinum are within normal limits. Patchy areas of increased density are noted on both sides of the chest. Lungs otherwise are clear. Bony structures show nothing acute. Surgical clips are noted from prior cholecystectomy. Impression: 1. Patchy increased density within both sides of the chest most likely representing COVID pneumonia. 2. Other findings believed to be nonacute. Diagnostic code #3
== END 2021-04-17 07:00 ==
LOC: JD.ED 19:24
DX: U07.1 COVID-19 (principal); I95.9 Hypotension, unspecified; E87.1 Hypo-osmolality and hyponatremia; D72.829 Elevated white blood cell count, unspecified; E87.2 Acidosis; I12.9 Hypertensive chronic kidney disease with stage 1 through stage 4 chronic kidney disease, or unspecified chronic kidney disease; N18.9 Chronic kidney disease, unspecified; N17.9 Acute kidney failure, unspecified; R79.82 Elevated C-reactive protein (CRP); Z88.5 Allergy status to narcotic agent
CPT/HCPCS: 36415; 36600; 71045; 74177; 80053; 81001; 82803; 83605; 83735; 85007; 85027; 86140; 87040; 87086; 87088; 87186; 96365; 96366; 96368; 96375; 99285; A9270; J0696; J1170; J2405; J3370; J7030; J7050; Q9967; U0002